=== PATIENT | female | born 2000 | race Caucasian/White ===

== ENCOUNTER 2025-03-23 18:33 | Emergency (ER) | payer BC, SELFPAY ==
[2025-03-23 18:34] VITALS: BMI 31.3
[2025-03-23 20:17] VITALS: BP 103/65; PULSE 121; RESP 18; TEMP 38.1; O2SAT 97
--- NOTE | 2025-03-23 20:49 | PD.EDNV ---
Nausea/Vomit./Diarrhea-RME/HPI General Chief complaint: Nausea/Vomiting/Diarrhea Stated complaint: FEVER Time Seen by Provider: 03/23/25 20:36 Arrival date/time: 03/23/25 18:33 RME / HPI RME / HPI Narrative: 24-year-old female presents to the ED with complaint of fever of 103.7, nausea, diarrhea, sore throat, and feeling dehydrated since late last night. Related Data Allergies Allergy/AdvReac Type Severity Reaction Status Date / Time No Known Allergies Allergy Verified 08/05/24 13:57 Course Vital Signs Vital signs: Vital Signs Temperature 100.6 F H 03/23/25 20:17 Pulse Rate 121 H 03/23/25 20:17 Respiratory Rate 18 03/23/25 20:17 Blood Pressure 103/65 03/23/25 20:17 Pulse Oximetry (%) 97 03/23/25 20:17 Oxygen Delivery Method Room Air 03/23/25 20:17 Discharge Plan Patient/Caregiver Discharge Instructions Print Language: [place]iboutian
[2025-03-23 21:30] LABS: Strep A Rapid Negative (Negative)
[2025-03-23 21:47] LABS: Basophils # (Auto) 0.1 Thou/mm3 (0.0-0.2); Basophils % (Auto) 0 % (0-2.5); Eosinophils % (Auto) 0 % (0-10); Hematocrit 36.1 % (36.0-46.0); Hemoglobin 13.2 g/dL (12.0-16.0); Immature Granulocytes % (Auto) 1 % (0-0); Immature Granulocytes Auto 0.07 Thou/mm3 (0.00-0.00); Lymphocytes # (Auto) 1.8 Thou/mm3 (1.0-4.8); Lymphocytes % (Auto) 12 % (10-50); Mean Corpuscular HGB Conc 36.6 g/dl (31.0-37.0); Mean Corpuscular Hemoglobin 30.8 pg (25.0-35.0); Mean Corpuscular Volume 84 fL (80-100); Monocytes # (Auto) 0.7 Thou/mm3 (0.0-0.8); Monocytes % (Auto) 5 % (0-12); Neutrophils # (Auto) 12.2 Thou/mm3 (1.8-7.7); Neutrophils % (Auto) 82 % (37-80); Nucleated Red Blood Cell % 0 /100 WBC (0); Platelet Count 260 Thou/mm3 (140-440); RDW Standard Deviation 37.5 fL (36.4-46.3); Red Blood Count 4.29 Miln/mm3 (4.00-5.20); White Blood Count 14.8 Thou/mm3 (3.6-11.0)
[2025-03-23 21:55] LABS: Collection Type, Urine Clean Catch
[2025-03-23 22:03] LABS: Alanine Aminotransferase 30 U/L (10-49); Albumin, Serum 4.5 gm/dL (3.5-5.0); Anion Gap 11 (7-16); BUN/Creatinine Ratio 14 Ratio (12-20); Bilirubin,Total 0.5 mg/dL (0.3-1.2); Blood Urea Nitrogen 14 mg/dL (9-23); Calcium 9.6 mg/dL (8.3-10.6); Carbon Dioxide 22.9 mMol/L (20.0-31.0); Chloride 104 mMol/L (98-107); Estimated Creatinine Clearance 101.2 mL/min (>60); Glucose 102 mg/dL (74-106); Magnesium 1.7 mg/dL (1.6-2.6); Osmolality,Calculated 276 (275-295); Phosphorous 3.4 mg/dL (2.4-5.1); Potassium 4.1 mMol/L (3.4-5.1); Sodium 138 mMol/L (136-145); eGFR > 60 See Note
[2025-03-23 22:04] LABS: Albumin/Globulin Ratio 1.8 (1.2-2.2); Alkaline Phosphatase 52 U/L (46-116); Amylase 55 U/L (30-118); Calcium (Corrected) 9.6 mg/dL (8.5-10.1); Globulin 2.5 gm/dL (2.3-3.5); Lipase 37 U/L (12-53)
[2025-03-23 22:11] LABS: HCG Qualitative,Urine Negative
[2025-03-23 22:14] LABS: Bacteria,Urine Rare; Bilirubin,Urine Negative (Negative); Blood,Urine 1+ (Negative); Calcium Oxalate Crystals,Urine 2+; Clarity,Urine Turbid (Clear/Hazy); Color,Urine Yellow (Lt Yel-Yel); Glucose, Urine Negative (Negative); Ketones,Urine 1+ (Negative); Leukocyte Esterase,Urine Negative (Negative); Nitrite,Urine Negative (Negative); Protein,Urine 1+ (Neg - Trace); RBC,Urine 6 /hpf (0-3); Specific Gravity,Urine 1.034 (1.001-1.035); Squamous Epithelial Cell,Urine 4 /hpf (0-5); Urobilinogen,Urine Negative mg/dL (0.0-1.0); WBC,Urine 2 /hpf (0-5)
[2025-03-23 22:18] LABS: Amphetamine/Methamp Scrn,U Negative (Negative); Barbiturate Screen,Urine Negative (Negative); Benzodiazepines Screen,Urine Negative (Negative); Benzoylecgonine Screen, Ur Negative (Negative); Fentanyl Screen,Urine Negative (Negative); Opiate Screen,Urine Negative (Negative); THC Screen,Urine Negative (Negative)
[2025-03-23] MEDS: SODIUM CHLORIDE 0.9% 1000 ML 1,000 ML 999 ML IV (22:27)
[2025-03-24 00:07] VITALS: BP 104/70; PULSE 109; RESP 18; TEMP 37.9; O2SAT 99
[2025-03-24 00:34] VITALS: TEMP 37.9
[2025-03-24] MEDS: ACETAMINOPHEN 325 MG TABLET 650 MG PO (00:34)
--- NOTE | 2025-03-24 01:38 | PD.EDNV ---
Nausea/Vomit./Diarrhea-RME/HPI General Chief complaint: Nausea/Vomiting/Diarrhea Stated complaint: FEVER Time Seen by Provider: 03/23/25 20:36 Arrival date/time: 03/23/25 18:33 RME / HPI RME / HPI Narrative: 24-year-old female presents to the ED with complaint of fever of 103.7, nausea, diarrhea, sore throat, and feeling dehydrated since late last night. ----- Dr. Ortiz?s Main ED Evaluation: 24yo female with no significant past medical history presents to the ED for a chief complaint of diarrhea. Patient states she started having significant diarrhea today, reported she developed a fever of 104 today and was concerned, so she came in for evaluation. Patient reports associated nausea. Patient denies any abdominal pain, dysuria, foul-smelling urine or any other associated symptoms. Denies any sick contacts. Denies any possibility of being . NKA. Related Data Allergies Allergy/AdvReac Type Severity Reaction Status Date / Time No Known Allergies Allergy Verified 08/05/24 13:57 Review of Systems Review of Systems Systems Reviewed: All systems reviewed, normal except as documented Past Medical History Social History SMOKING STATUS: Never smoker ED Exam Narrative Physical exam: GENERAL APPEARANCE: alert and oriented x 4, well-developed, well-nourished, no acute distress VITALS: All vitals were reviewed and the pulse ox is 99% on room air, which is normal according to my interpretation. HEENT: Normocephalic, atraumatic; pupils equal, round, reactive to light; EOMI; mucous membranes pink, moist; oropharynx clear NECK: Supple LUNGS: CTABL; no wheezes, no rales, no rhonchi HEART: Regular rate, regular rhythm; normal S1, S2; no murmurs ABDOMEN: non distended; normal BS; soft, no tenderness, no guarding, no rebound; no masses, no organomegaly, no hernia BACK: no CVA tenderness EXTREMITIES: atraumatic; no edema NEUROLOGIC: awake; alert and oriented x4; cranial nerves II-XII grossly intact; no focal sensory or motor deficits PSYCHIATRIC: appropriate mood and affect SKIN: warm, diaphoretic, normal color; no rashes Course Quality Measures none Orders Category Date Time Status Bedside COVID-19 Antigen Test NOW Care 03/23/25 20:50 Active Bedside Influenza A&B Antigen Test NOW Care 03/23/25 20:51 Completed IV [Insert IV] NOW Care 03/23/25 20:50 Active NPO STAT Care 03/23/25 20:50 Active Amylase Stat Lab 03/23/25 21:12 Completed CBC Stat Lab 03/23/25 21:12 Completed Comprehensive Metabolic Panel Stat Lab 03/23/25 21:12 Completed Drug Screen,Urine Stat Lab 03/23/25 21:36 Completed HCG Qualitative,Urine Stat Lab 03/23/25 21:36 Completed Lipase Stat Lab 03/23/25 21:12 Completed Magnesium Stat Lab 03/23/25 21:12 Completed Ova & Parasites, Conc, Smear* Stat Lab 03/24/25 01:46 Ordered Phosphorous Stat Lab 03/23/25 21:12 Completed Strep A Rapid Stat Lab 03/23/25 20:54 Completed Urinalysis Stat Lab 03/23/25 21:36 Completed Urine Culture Stat Lab 03/23/25 21:36 Received c diff [Clostridium Difficile PCR] Stat Lab 03/24/25 Ordered Acetaminophen Tab [Tylenol Tab] Med 03/24/25 00:10 Discontinued 650 mg PO X1 ONE Ketorolac Inj [Toradol Inj] Med 03/24/25 01:38 Discontinued 15 mg IVP X1 ONE Ondansetron Inj [Zofran Inj] Med 03/23/25 20:50 Discontinued 4 mg IVP X1 ONE Sodium Chloride 0.9% 1000 ml [Ns] 1,000 ml Med 03/23/25 20:50 Discontinued IV 999 mls/hr Sodium Chloride 0.9% 1000 ml [Ns] 1,000 ml Med 03/24/25 01:38 Discontinued IV 999 mls/hr Reevaluation(s) Reevaluation #1: Patient is no longer diaphoretic and is receiving IVF. She states she feels better. Patient is stable to be discharged home after receiving her IVF. Time: 02:17 Vital Signs Vital signs: Vital Signs Temperature 100.6 F H 03/23/25 20:17 Pulse Rate 121 H 03/23/25 20:17 Respiratory Rate 18 03/23/25 20:17 Blood Pressure 103/65 03/23/25 20:17 Pulse Oximetry (%) 97 03/23/25 20:17 Oxygen Delivery Method Room Air 03/23/25 20:17 Nausea/Vomiting/Diarrhea MDM Narrative MDM Narrative:: Scribe Attestation: 03/24/25 - Willis, Giovana Hutson am scribing for and in the presence of Dr. Ortiz. Patient data External records reviewed:: [facility] previous records (Per chart review, patient has no relevant previous ED visits or admissions to this facility.) Clinical information provided by:: patient Social determinants that could affect healthcare access:: none Patient has the following chronic illnesses:: none How is presenting disease/condition affected by chronic disease/condition?: no chronic disease Evaluation data The following diagnostics were reviewed and interpreted by me:: lab results Lab and/or radiology exams considered but not ordered:: none Interpretation Summary: WBC 14.8, CMP normal, UA unremarkable, UDS negative, HCG negative. COVID/Influenza negative. Medications / Prescriptions Medications / Prescriptions considered but not ordered:: none Medication administrations:: Medication Administration History Discontinued Medications Acetaminophen (Acetaminophen 325 Mg Tablet) 650 mg PO X1 ONE Stop: 03/24/25 00:11 Last Admin: 03/24/25 00:34 Dose: 650 mg Documented By: EE Sodium Chloride (Ns) 1,000 mls @ 999 mls/hr IV .Q1H1M ONE Stop: 03/23/25 21:50 Last Infusion: 03/23/25 23:19 Dose: Infused Documented By: Admin: 03/23/25 22:27 Dose: 999 mls/hr Documented By: EF Sodium Chloride (Ns) 1,000 mls @ 999 mls/hr IV .Q1H1M ONE Stop: 03/24/25 02:38 Last Admin: 03/24/25 02:14 Dose: 999 mls/hr Documented By: CVL Ketorolac Tromethamine (Ketorolac Inj 30 Mg/Ml Vial) 15 mg IVP X1 ONE Stop: 03/24/25 01:39 Last Admin: 03/24/25 02:15 Dose: 15 mg Documented By: CVL Ondansetron HCl (Ondansetron Inj 2 Mg/Ml Inj 2 Ml) 4 mg IVP X1 ONE; Protocol Stop: 03/23/25 20:51 Last Admin: 03/23/25 22:28 Dose: Not Given Documented By: EF Non-Admin Reason: Patient Refused see above Consultations Consultation(s) initiated? (list below): No Diagnosis Nausea Differential Diagnosis: food poisoning, gastroenteritis and dehydration Most likely diagnosis given after review of the tests above:: see clinical impression below Admission Indicated Admission indicated?: not indicated Admission Request Was there a request for admission?: No Disposition Plan Disposition Plan: Discharge Discharge Attestation Discharge Attestation: The patient and all family members were given an opportunity to ask questions and understood the discharge instructions. Discharge instructions specifically effects, indications for sooner follow up or return to the emergency department, and the expected course of current diagnosis. Patient condition: Stable Discharge Plan Plan Patient Disposition: HOME (Self Care) Prescriptions/Referrals Referrals: Adina Pacheco PA-C [Primary Care Provider] - In 1 week Problem List Clinical Impression: Fever, Diarrhea Patient/Caregiver Discharge Instructions Education Materials: Treating Diarrhea Print Language: Maltese Stand Alone Forms: [facility] Award Info., Patient Portal Info Letter
[2025-03-24 02:11] VITALS: TEMP 37.3
[2025-03-24] MEDS: SODIUM CHLORIDE 0.9% 1000 ML 1,000 ML 999 ML IV (02:14)
[2025-03-24] MEDS: KETOROLAC INJ 30 MG/ML VIAL 15 MG IVP (02:15)
[2025-03-24 02:59] VITALS: BP 127/62; PULSE 89; RESP 16; TEMP 37.3; O2SAT 99
== END 2025-03-24 03:00 | disposition home or self-care (01) ==
PROVIDERS: Physician Assistant; Emergency Provider Emergency Medicine; PCP Physician Assistant Medical
DX: R50.9 Fever, unspecified (principal); R19.7 Diarrhea, unspecified; R11.2 Nausea with vomiting, unspecified
CPT/HCPCS: 36415; 80053; 80307; 81001; 81025; 82150; 83690; 83735; 84100; 85025; 87077; 87086; 87177; 87186; 87209; 87400; 87493; 87651; 87811; 96361; 96374; 99284; J1885; J7030; A9270

== ENCOUNTER → 2025-04-02 | Outpatient (BNVA) | payer BC, SELFPAY | END | disposition home or self-care (01) | PROVIDERS: PCP Physician Assistant Medical; Referring Provider Physician Assistant Medical; Visit Provider Urology | DX: N39.0 Urinary tract infection, site not specified (principal); R39.89 Other symptoms and signs involving the genitourinary system; E66.9 Obesity, unspecified; Z68.31 Body mass index [BMI] 31.0-31.9, adult | CPT/HCPCS: 81003; 99212; G0463 ==

== ENCOUNTER → 2025-08-03 | Outpatient (BNVA) | payer BC, SELFPAY | END | disposition home or self-care (01) | PROVIDERS: PCP Physician Assistant Medical; Referring Provider Physician Assistant Medical; Visit Provider Urology | DX: R35.0 Frequency of micturition (principal) | CPT/HCPCS: 81003; 99212; G0463 ==